=== PATIENT | male | born 1975 | race Caucasian/White ===

== ENCOUNTER 2017-02-19 17:58 | Emergency (ER) | payer OTHER ==
[~2017-02-19] VITALS: Wt 84.0 kg
--- NOTE | 2017-02-19 23:36 | RADRPT ---
PROCEDURE: XR Chest. CLINICAL INDICATION: Shortness of breath. TECHNIQUE: Single frontal chest x-ray. COMPARISON: None available. FINDINGS: The cardiomediastinal silhouette is unremarkable. No pneumothorax, pleural effusion or consolidation is seen. No acute osseous abnormality is noted. IMPRESSION: 1. No acute cardiopulmonary abnormality. RPTAT: HH .Trevor Jones MD, Date Time Electronically viewed and signed by .Trevor Jones MD, on 02/19/2017 23:35 .N/
--- NOTE | 2017-02-19 23:37 | RADRPT ---
PROCEDURE: US DVT. CLINICAL INDICATION: Bilateral lower extremity pain and swelling. TECHNIQUE: Multiple longitudinal and transverse images of the bilateral lower extremity veins were obtained with carpio scale and color Doppler imaging. 2D grayscale measurements with compression, co mich Doppler flow, and augmentation was performed. The calf veins were interrogated as well. COMPARISON: No prior studies are available for comparison. FINDINGS: The bilateral common femoral, superficial femoral and popliteal veins are normally compressible thro ughout. Color flow demonstrates normal filling of the vessel. Normal waveforms are visualized and there is normal response to augmentation. The calf veins are visualized and are equally unremarkabl e. IMPRESSION: 1. No evidence of a deep vein thrombosis involving either lower extremity. RPTAT: HH .Trevor Jones MD, Date Time Electronically viewed and signed by .Trevor Jones MD, MD on 02/19/2017 23:36 .N/
[2017-02-20] MEDS ORDERED: AMPICILLIN/SULB 3 GM/NS (PMX) 100 ML IVPB STA (00:09)
[2017-02-20] MEDS ORDERED: SOD CHLORIDE 0.9% 1,000 ML IV STA (00:09)
[2017-02-20] MEDS ORDERED: KETOROLAC 30 MG INJ IV STA (00:09)
[2017-02-20 00:32] LABS: ADD SCAN DIFF NO
[2017-02-20 00:34] LABS: BASOPHILS % 0.5 % (0.0-2.0); EOSINOPHILS # 0.4 10^3/ul (0.0-0.5); EOSINOPHILS % 4.4 % (0.0-7.0); HEMATOCRIT 46.1 % (42.0-52.0); HEMOGLOBIN 14.8 g/dl (14.0-18.0); LYMPHOCYTES # 2.9 10^3/ul (0.8-2.9); LYMPHOCYTES % 34.2 % (15.0-51.0); MEAN CORPUSCULAR HEMOGLOBIN 28.1 pg (29.0-33.0); MEAN CORPUSCULAR HGB CONC 32.1 g/dl (32.0-37.0); MEAN CORPUSCULAR VOLUME 87.5 fl (82.0-101.0); MEAN PLATELET VOLUME 9.7 fl (7.4-10.4); MONOCYTE # 0.7 10^3/ul (0.3-0.9); MONOCYTES % 8.1 % (0.0-11.0); NEUTROPHIL # 4.4 10^3/ul (1.6-7.5); NEUTROPHILS % 52.4 % (39.0-77.0); PLATELET COUNT 358 10^3/UL (140-415); RED BLOOD COUNT 5.27 10^6/ul (4.70-6.10); RED CELL DISTRIBUTION WIDTH 11.9 % (11.5-14.5); WHITE BLOOD COUNT 8.4 10^3/ul (4.8-10.8)
[2017-02-20 00:54] LABS: ALBUMIN 4.5 g/dl (3.3-4.9); ALBUMIN/GLOBULIN RATIO 1.04; BILIRUBIN,INDIRECT 0.3 mg/dl (0-1.1); BILIRUBIN,TOTAL 0.3 mg/dl (0.2-1.3); CALCIUM 9.6 mg/dl (8.4-10.2); CREATININE 0.91 mg/dl (0.61-1.24); POTASSIUM 3.9 mmol/L (3.5-5.1); TOTAL PROTEIN 8.8 g/dl (6.1-8.1); URIC ACID 9.6 mg/dl (3.1-7.9)
[2017-02-20] MEDS ORDERED: IBUP200C11 PO (01:07)
[2017-02-20] MEDS ORDERED: IBUP200C PO (01:09)
[2017-02-20] MEDS ORDERED: [UNRECOGNIZED DRUG - CODE] TP (01:10)
[2017-02-20 01:19] LABS: ADD UMIC YES; URINE BILIRUBIN (Dip) NEGATIVE (NEGATIVE); URINE BLOOD (Dip) TRACE (NEGATIVE); URINE COLOR LT. YELLOW (YELLOW); URINE GLUCOSE (Dip) NEGATIVE (NEGATIVE); URINE KETONES (Dip) NEGATIVE (NEGATIVE); URINE LEUKOCYTE ESTERASE (Dip) NEGATIVE (NEGATIVE); URINE NITRITE (Dip) NEGATIVE (NEGATIVE); URINE TOTAL PROTEIN (Dip) NEGATIVE (NEGATIVE); URINE UROBILINOGEN (Dip) 0.2 E.U./dL (0.1-1.0)
--- NOTE | 2017-02-20 01:42 | ERD ---
ER Documentation Chief Complaint Date/Time DATE: 02/20/17 TIME: 01:40 Chief Complaint LEFT FOOT/CALF PAIN X 2 WEEKS HPI This a 42-year-old male comes in with bilateral foot pain erythema and induration for the past 2 days getting progressively worse. Denies any fevers or chills. Denies any nausea vomiting. Denies any sick contacts. Denies any other current complaints. ROS All systems reviewed and are negative except as per history of present illness. Medications Home Meds Reported Medications Eucalyptus Oil/Menthol/Camphor (VICKS VAPORUB OINTMENT) 50 Gm Oint...g., 50 GM TP PRN 02/20/17 Ibuprofen* (Ibuprofen*) 200 Mg Capsule, 200 MG PO QID Y for PAIN, CAP 02/20/17 Ibuprofen* (Advil*) 200 Mg Capsule, 400 MG PO Q6H Y for PAIN, CAP 02/20/17 Allergies Allergies: Coded Allergies: No Known Allergy (Unverified , 02/20/17) PMhx/Soc Medical and Surgical Hx: pt denies Medical Hx, pt denies Surgical Hx Hx Alcohol Use: Yes Hx Substance Use: Yes (weed) Hx Tobacco Use: No Smoking Status: Never smoker Physical Exam Vitals Vital Signs Date Time Temp Pulse Resp B/P Pulse Ox O2 Delivery O2 Flow Rate FiO2 02/20/17 00:27 98.7 82 20 130/88 100 Room Air 02/19/17 18:10 99.0 99 18 129/82 99 Physical Exam Const: [] Head: Atraumatic Eyes: Normal Conjunctiva ENT: Normal External Ears, Nose and Mouth. Neck: Full range of motion..~ No meningismus. Resp: Clear to auscultation bilaterally Cardio: Regular rate and rhythm, no murmurs Abd: Soft, non tender, non distended. Normal bowel sounds Skin: Erythema induration on the bilateral heels to mid Achilles region. No fluctuance noted. Normal pulses. Negative Homans sign bilaterally. Back: No midline or flank tenderness Ext: No cyanosis, or edema Neur: Awake and alert Psych: Normal Mood and Affect Result Diagram: 02/20/17 0006 02/20/17 0006 Results 24 hrs Laboratory Tests Test 02/20/17 00:06 02/20/17 00:15 White Blood Count 8.410^3/ul Red Blood Count 5.2710^6/ul Hemoglobin 14.8g/dl Hematocrit 46.1% Mean Corpuscular Volume 87.5fl Mean Corpuscular Hemoglobin 28.1pg Mean Corpuscular Hemoglobin Concent 32.1g/dl Red Cell Distribution Width 11.9% Platelet Count 60293^3/UL Mean Platelet Volume 9.7fl Neutrophils % 52.4% Lymphocytes % 34.2% Monocytes % 8.1% Eosinophils % 4.4% Basophils % 0.5% Nucleated Red Blood Cells % 0.0/100WBC Neutrophils # 4.410^3/ul Lymphocytes # 2.910^3/ul Monocytes # 0.710^3/ul Eosinophils # 0.410^3/ul Basophils # 0.010^3/ul Nucleated Red Blood Cells # 0.010^3/ul Sodium Level 138mmol/L Potassium Level 3.9mmol/L Chloride Level 100mmol/L Carbon Dioxide Level 26mmol/L Anion Gap 16 Blood Urea Nitrogen 13mg/dl Creatinine 0.91mg/dl Glucose Level 99mg/dl Uric Acid 9.6mg/dl Calcium Level 9.6mg/dl Total Bilirubin 0.3mg/dl Direct Bilirubin 0.00mg/dl Indirect Bilirubin 0.3mg/dl Aspartate Amino Transf (AST/SGOT) 25IU/L Alanine Aminotransferase (ALT/SGPT) 41IU/L Alkaline Phosphatase 149IU/L Total Protein 8.8g/dl Albumin 4.5g/dl Globulin 4.30g/dl Albumin/Globulin Ratio 1.04 Lipase 63U/L Urine Color LT. YELLOW Urine Clarity CLEAR Urine pH 6.0 Urine Specific [place] 1.010 Urine Ketones NEGATIVE Urine Nitrite NEGATIVE Urine Bilirubin NEGATIVE Urine Urobilinogen 0.2 E.U./dL Urine Leukocyte Esterase NEGATIVE Urine Microscopic RBC Pending Urine Microscopic WBC Pending Urine Hemoglobin TRACE Urine Glucose NEGATIVE% Urine Total Protein NEGATIVE Current Medications Medications (Trade) Dose Ordered Sig/Mari Route PRN Reason Start Time Stop Time Status Last Admin Dose Admin Sodium Chloride 1,000 ml @ 1,000 mls/hr Q1H STAT IV 02/20/17 00:09 02/20/17 01:08 DC 02/20/17 00:20 Ampicillin Sodium/ Sulbactam Sodium (Unasyn 3gm/NS (Pmx)) 100 ml @ 100 mls/hr ONCE STAT IVPB 5/9/17 00:09 02/20/17 01:08 DC 02/20/17 00:42 Ketorolac Tromethamine (Toradol) 30 mg ONCE STAT IV 02/20/17 00:09 02/20/17 00:12 DC 02/20/17 00:20 Procedures/MDM Medical decision-makin-year-old male as well as be cellulitis. At this point is clinically stable. Patient treated with antibiotics here in the ER. Discharged on clindamycin and Keflex. Along with antifungal ointment. Follow- up tomorrow here for wound check. Follow-up with PCP tomorrow as well. Departure Diagnosis: Primary Impression: Cellulitis Site of cellulitis: unspecified site Qualified Code: L03.90 - Cellulitis, unspecified cellulitis site Condition: Stable LYNNETTE GALE February 20, 2017 01:42
[2017-02-20 01:46] LABS: URINE RBCS 0-2 /HPF ([, 0])
[2017-02-20 01:47] LABS: SQUAMOUS EPITHELIAL CELL,UR RARE
[2017-02-20] MEDS ORDERED: TRAM50TA2 PO (01:48)
[2017-02-20] MEDS ORDERED: CLIN-73 PO (01:48)
[2017-02-20] MEDS ORDERED: TERB15CR21 TP (01:48)
[2017-02-20] MEDS ORDERED: IBUP800T25 PO (02:25)
[2017-02-20 02:28] VITALS: BP 114/83; PULSE 84; RESP 20; TEMP 98
== END 2017-02-20 02:29 | disposition home or self-care (01) ==
LOC: E/R 17:58
DX: L03.116 Cellulitis of left lower limb (principal); L03.115 Cellulitis of right lower limb; R06.02 Shortness of breath
CPT/HCPCS: 36415; 71010; 80053; 81001; 83690; 84560; 85025; 87040; 93970; 96365; 96375; J0295; J1885; J7030; Z7502; 81003